=== PATIENT | female | born 1980 | race African-American/Black ===

== ENCOUNTER 2019-02-02 22:39 | Emergency (ER) | payer MEDICAID ==
[~2019-02-02] VITALS: Ht 157.5 cm; Wt 63.5 kg
[2019-02-02] MEDS ORDERED: NKM (22:47)
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
[2019-02-02 22:50] VITALS: BP 100/62
[2019-02-02] MEDS ORDERED: HYDROcodone/Acetamin 5/325 tab ORAL ONE (23:00)
[2019-02-02] MEDS ORDERED: HYDROCODON-ACE1 EA15 ORAL (23:19)
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
[2019-02-02 23:23] VITALS: BP 100/62
--- NOTE | 2019-02-02 23:24 | NUR ---
ER DISCHARGE NOTE: Patient is cleared to be discharged per ERMD, pt is aox4, on room air, with stable vital signs. pt was given dc and prescription instructions, pt was able to verbalize understanding, pt id band. pt is able to ambulate with steady gait. pt took all belongings. pt has friend to safely drive her home
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
== END 2019-02-02 23:23 | disposition home or self-care (01) ==
LOC: EMR 23:02
DX: S60.021A Contusion of right index finger without damage to nail, initial encounter (principal); Z88.8 Allergy status to other drugs, medicaments and biological substances; W23.1XXA Caught, crushed, jammed, or pinched between stationary objects, initial encounter; Y92.410 Unspecified street and highway as the place of occurrence of the external cause
CPT/HCPCS: 29130; 99283

== ENCOUNTER 2020-09-08 14:20 | Emergency (ER) | payer MEDICAID ==
[~2020-09-08] VITALS: Ht 157.5 cm; Wt 60.8 kg
[~2020-09-08 14:20] MED LIST: HYDROCODON-ACE1 EA15 ORAL; NKM
--- NOTE | 2020-09-08 14:55 | NUR ---
ED Nurse Note: Pt cleared by health care Provider for discharge. DC instructions was given and explained to pt and verbalized understanding of teachings. All medical deviecs such as ID band removed. Pt is AAO x4, ambulatory and left with all personal belongings.
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
[2020-09-08 18:23] VITALS: BP 125/53
== END 2020-09-08 15:00 | disposition home or self-care (01) ==
LOC: EMR 14:39
DX: H72.92 Unspecified perforation of tympanic membrane, left ear (principal); Z88.6 Allergy status to analgesic agent; Z88.8 Allergy status to other drugs, medicaments and biological substances
CPT/HCPCS: 99281